=== PATIENT | female | born 1980 | race Caucasian/White ===

== ENCOUNTER 2021-07-26 18:26 | Emergency (ER) | payer MEDICAID ==
[~2021-07-26] VITALS: Ht 162.6 cm; Wt 136.0 kg
[2021-07-26] MEDS ORDERED: METOCLOPRAMIDE HCL 10MG TABLET PO ONE (18:45)
[2021-07-26] MEDS: SODIUM CHLORIDE 0.9% 1,000 ML IV ONE (18:45)
[2021-07-26 19:20] LABS: CLARITY URINE CLEAR (CLEAR); COLOR URINE YELLOW (YELLOW); KETONES URINE NEGATIVE (NEGATIVE); LEUKOCYTE ESTERASE URINE NEGATIVE (NEGATIVE); NITRITE URINE NEGATIVE (NEGATIVE); OCCULT BLOOD URINE NEGATIVE (NEGATIVE); PH URINE 5.5 (4.5-8.0); PROTEIN URINE NEGATIVE (NEGATIVE); SPECIFIC GRAVITY URINE 1.022 (1.005-1.030); UROBILINOGEN URINE 0.2 E.U./dL (0.2-1.0)
[2021-07-26 19:45] LABS: BASOPHILS % 1.1 % (0.0-2.0); EOSINOPHILS % 3.1 % (0.0-5.0); HEMATOCRIT. 36.1 % (36.0-48.0); HEMOGLOBIN. 11.1 g/dL (12.0-16.0); LYMPHOCYTES % 22.9 % (20.0-50.0); MEAN CORPUSCULAR HEMOGLOBIN 20.9 pg (28.0-32.0); MEAN CORPUSCULAR VOLUME 68.1 fL (81.0-99.0); MEAN PLATELET VOLUME 7.5 fl (7.4-10.4); NEUTROPHILS % 66.9 % (40.0-76.0); PLATELET 453 x1000/uL (130-400); RED CELL DISTRIBUTION WIDTH 18.6 % (11.6-14.6)
[2021-07-26 19:50] LABS: HCG SCREEN NEGATIVE
[2021-07-26 19:51] LABS: CHLORIDE 105 mEq/L (98-107)
[2021-07-26 19:52] LABS: *BENZODIAZEPINES SCREEN URINE NEGATIVE (NEGATIVE)
[2021-07-26 19:53] LABS: *COCAINE SCREEN URINE NEGATIVE (NEGATIVE); CANNABINOID URINE SCREEN NEGATIVE (NEGATIVE); METHADONE URINE SCREEN NEGATIVE (NEGATIVE)
[2021-07-26 19:55] LABS: *BARBITURATES SCREEN URINE NEGATIVE (NEGATIVE)
[2021-07-26 19:58] LABS: ETHANOL BLOOD < 10 mg/dL
[2021-07-26 20:01] LABS: *AMPHETAMINES SCREEN URINE PRESUMTIVE POSITIVE (NEGATIVE); OPIATES URINE SCREEN PRESUMTIVE POSITIVE (NEGATIVE); PHENCYCLIDINE URINE SCREEN PRESUMTIVE POSITIVE (NEGATIVE)
[2021-07-26 20:01] LABS: CREATINE KINASE 69 IU/L (26-192)
[2021-07-26 20:15] LABS: PLATELET ESTIMATE INCREASED
[2021-07-26] MEDS ORDERED: METO-293 MT (22:28)
[2021-07-26] MEDS ORDERED: NALO4SPR BOTHNSTRLS (22:28)
[2021-07-26 22:30] VITALS: BP 127/67
== END 2021-07-26 22:50 | disposition home or self-care (01) ==
LOC: ER 18:26
DX: F19.10 Other psychoactive substance abuse, uncomplicated (principal); F17.200 Nicotine dependence, unspecified, uncomplicated; F12.10 Cannabis abuse, uncomplicated; F14.10 Cocaine abuse, uncomplicated; F15.10 Other stimulant abuse, uncomplicated; F11.20 Opioid dependence, uncomplicated
CPT/HCPCS: 36415; 70450; 71045; 80053; 80305; 80307; 80320; 80329; 81003; 81025; 82550; 82962; 83880; 84484; 84703; 85025; 93005; 99285; J7030; G0480